=== PATIENT | male | born 2000 | race Hispanic/Latino ===

== ENCOUNTER 2024-06-20 12:54 | Emergency (ER) | payer OTHER ==
[~2024-06-20] VITALS: Ht 167.6 cm; Wt 66.7 kg
[2024-06-20 13:33] LABS: BASOPHILS # (AUTO) 0.05 K/uL (0.00-0.20); BASOPHILS % (AUTO) 0.7 % (0.0-5.0); EOSINOPHILS # (AUTO) 0.03 K/uL (0.00-0.70); EOSINOPHILS % (AUTO) 0.4 % (0.0-8.0); HEMATOCRIT 42.5 % (42-54); IMMATURE GRANULOCYTE ABSOLUTE 0.02 K/uL (0-1); LYMPHOCYTES # (AUTO) 2.1 K/uL (1.0-4.8); LYMPHOCYTES % (AUTO) 30.3 % (21.0-51.0); MEAN CORPUSCULAR HEMOGLOBIN 31.8 pg (27.0-33.0); MEAN CORPUSCULAR HGB CONC 34.4 g/dL (32.0-36.0); MEAN CORPUSCULAR VOLUME 92.6 fL (79-99); MONOCYTES # (AUTO) 0.7 K/uL (0.1-1.0); NEUTROPHILS # (AUTO) 4.1 K/uL (1.8-7.7); NEUTROPHILS % (AUTO) 58.3 % (40.0-77.0); PLATELET COUNT (AUTO) 273 K/uL (130-400); RED BLOOD CELL COUNT(AUTO) 4.59 MIL/uL (4.50-6.20)
[2024-06-20 13:39] LABS: INR 1.01 (0.85-1.15); PROTHROMBIN TIME 10.9 SEC (9.6-11.6)
[2024-06-20 13:40] LABS: PARTIAL THROMBOPLASTIN TIME 34.3 SEC (26.3-35.5); POTASSIUM 4.2 mmol/L (3.5-5.1)
[2024-06-20 14:16] VITALS: BP 128/72; PULSE 70; RESP 20; TEMP 98.8; O2SAT 99
== END 2024-06-20 14:20 ==
LOC: EDH 12:54 → EEVIPCON 12:54 → EDH 14:20
DX: K06.8 Other specified disorders of gingiva and edentulous alveolar ridge (principal); K06.1 Gingival enlargement
CPT/HCPCS: 36415; 80048; 85025; 85610; 85730